=== PATIENT | female | born 1980 | race African-American/Black ===

== ENCOUNTER 2016-07-08 15:53 | Emergency (ER) | payer OTHER ==
[~2016-07-08] VITALS: Ht 170.2 cm; Wt 66.2 kg
[~2016-07-08 15:53] MED LIST: AMOXIL 875 MG875 MG PO; CYMBALTA60 MG PO; MEDROL DOSEPAK1 PAC PO; MOTRIN800 MG PO; MULTIVITAMIN1 TAB PO; NAPROXEN500 MG PO; POLYTRIM O200 GTT/BO OPH
[2016-07-08 17:47] LABS: ABSOLUTE BASOPHIL COUNT 0 /CUMM (0.0-0.2); ABSOLUTE EOSINOPHIL COUNT 0.1 /CUMM (0.0-0.7); ABSOLUTE GRANULOCYTE CT 2.1 /CUMM (1.4-6.5); ABSOLUTE LYMPH COUNT 1.4 /CUMM (1.2-3.4); ABSOLUTE MONOCYTE COUNT 0.4 /CUMM (0.10-0.60); BASOPHIL % 0.8 % (0.0-2.0); EOSINOPHIL % 1.6 % (0-5); GRANULOCYTE % 52.1 % (42.2-75.2); HEMATOCRIT 43.5 % (37-47); MEAN CORPUSCULAR HGB 30.3 PG (27.0-31.0); MEAN CORPUSCULAR HGB CONC 33.9 G/DL (33.0-37.0); MEAN CORPUSCULAR VOLUME 89.3 FL (81.0-99.0); RBC DISTRIBUTION WIDTH 14.2 % (11.5-14.5); RED BLOOD CELL CT 4.87 /CUMM (4.20-5.40)
[2016-07-08] MEDS ORDERED: NASONEX17 GM NASB (19:13)
[2016-07-08] MEDS ORDERED: AMOXICILLIN500 M3 PO (19:13)
[2016-07-08] MEDS ORDERED: ZOFRAN ODT4 M1 SL (19:13)
[2016-07-08] MEDS ORDERED: IBUPROFEN800 M1 PO (19:13)
--- NOTE | 2016-07-08 19:13 | ED INFLUENZA/URI COMPLAINT ---
History of Present Illness General Chief Complaint: General Adult Stated Complaint: "PAIN ALL OVER" COUGH,VOMITING Source: patient Exam Limitations: no limitations Vital Signs & Intake/Output Vital Signs & Intake/Output Vital Signs Date Time Temp Pulse Resp B/P Pulse O2 O2 Flow FiO2 Ox Delivery Rate 07/08 1936 101.4 71 15 117/70 97 Room Air 07/08 1855 Room Air 07/08 1659 98.7 82 18 145/83 97 Room Air ED Intake and Output 07/09 0000 07/08 1200 Intake Total Output Total Balance Patient 146 lb Weight Allergies Coded Allergies: NO KNOWN ALLERGIES (04/23/11) Triage Note: PT STATES HER WHOLE BODY HURTS. PT STATES SHE IS FREEZING AND COUGHING AND HAS A SUNUS LOMELI. PT STATES THIS IS GOING ON FOR 3 DAYS WITH TODAY AND YESTERDAY BEING BAD. Triage Nurses Notes Reviewed? yes Onset: Abrupt Duration: day(s): (2), constant, continues in ED Timing: recent history Severity: moderate, severe No Modifying Factors: none : No Patient currently breastfeeds: No HPI: 36-year-old female comes into emergency room with complaints of generalized body pain, fever chills bodyaches and nonproductive cough. Symptoms have been going on for the past 2 days. Patient's children were sick with similar symptoms. Some associated nausea and vomiting. Denies any diarrhea. No abdominal pain. Nothing seems to make the symptoms better. Denies any other associated symptoms. Patient also reports some pain and pressure under her right eye. (SHIELA NORTH) Past History Travel History Traveled to [place] past 21 day No Medical History Any Pertinent Medical History? 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 No (SHIELA NORTH) Review of Systems Review of Systems Constitutional: Reports: see HPI. EENTM: Reports: no symptoms. Respiratory: Reports: see HPI. Cardiovascular: Reports: no symptoms. GI: Reports: no symptoms. Genitourinary: Reports: no symptoms. Musculoskeletal: Reports: see HPI. Skin: Reports: no symptoms. Neurological/Psychological: Reports: no symptoms. Hematologic/Endocrine: Reports: no symptoms. Immunologic/Allergic: Reports: no symptoms. All Other Systems: Reviewed and Negative (SHIELA NORTH) Physical Exam Physical Exam General Appearance: well developed/nourished, alert, awake Head: atraumatic, normal appearance Eyes: Bilateral: normal appearance. Ears, Nose, Throat: normal ENT inspection, moist mucous membrane Neck: normal inspection Respiratory: normal breath sounds, no respiratory distress Cardiovascular: regular rate/rhythm Gastrointestinal: soft Back: normal inspection Extremities: normal inspection, normal range of motion Neurologic/Psych: awake, alert, oriented x 3, normal gait, normal mood/affect Skin: intact, normal color Core Measures Severe Sepsis Present: No Septic Shock Present: No (SHIELA NORTH) Progress Differential Diagnosis: influenza, meningitis, neutropenia, otitis, pneumonia, pharyngitis, sinusitis Plan of Care: Orders Procedure Date/time Status Add-on Test (ER Only) 07/08 190 Active HUMAN BETA HCG SCREEN 07/08 170 Complete RAPID VIRAL INFLUENZA A 07/08 170 Complete COMPREHENSIVE METABOLIC PANEL 07/08 170 Complete CBC WITHOUT DIFFERENTIAL 07/08 1699 Complete Laboratory Tests 07/08/16 1709: Anion Gap 11, Estimated GFR > 60, BUN/Creatinine Ratio 7.5, Glucose 92, Calcium 9.0, Total Bilirubin 0.3, AST 18, ALT 18, Alkaline Phosphatase 59, Total Protein 8.0, Albumin 4.5, Globulin 3.5, Albumin/Globulin Ratio 1.3, Total Beta HCG NEGATIVE, CBC w Diff NO MAN DIFF REQ, RBC 4.87, MCV 89.3, MCH 30.3, RDW 14.2, Gran % 52.1, Lymphocytes % 34.8, Monocytes % 10.7 H, Eosinophils % 1.6, Basophils % 0.8, Absolute Granulocytes 2.1, Absolute Lymphocytes 1.4, Absolute Monocytes 0.4, Absolute Eosinophils 0.1, Absolute Basophils 0, PUBS MCHC 33.9 Initial ED EKG: none (SHIELA NORTH) Departure Departure Disposition: HOME OR SELF CARE Condition: Stable Clinical Impression Primary Impression: Viral syndrome Referrals: KINGSTON WEBER MD (PCP/Family) Additional Instructions: Take amoxicillin, Nasonex, Motrin, and Zofran ODT as prescribed. Drink plenty of fluids. Rest. Return if any other concerns. Please go over all results of today's visit with your primary care doctor. Contact your primary care doctor to let them know you were here in the emergency room. There may be nonspecific findings which may not be related to your visit today here in the emergency room but may require further evaluation and chronic monitoring by your primary care doctor. If you had a laceration today the chance of foreign body always remains. You should follow-up with your primary care doctor for recheck in 3-5 days for a wound check. If you had an x-ray done there is a chance that a fracture could have been missed on initial read and you should follow-up with your primary care doctor for repeat x-rays if symptoms persist. If your blood pressure was elevated here in the emergency room please have rechecked by her primary care doctor within the next 48 hours by your primary care doctor. If you were prescribed a narcotic here in the emergency room or any type of controlled substances you're not allowed to drive while taking this medication or operate any type of heavy machinery. Narcotics can make you feel lightheaded dizziness nausea and can cause constipation. You may need to cotton picker operator a stool softener. Thank you for choosing [facility] emergency room. Please return to the emergency room immediately if you have any other concerns worsening of symptoms. Departure Forms: Customer Survey General Discharge Information Comments 07/08/2016 7:23:21 PM Symptoms are most consistent with viral illness. In regards to the patient's sinus pressure and pain patient covered with amoxicllin with amoxicillin for atypical sinusitis. Symptoms are likely more consistent with influenza despite negative flu swab or other viral illness. Supportive care. Hemodynamically stable. Patient was offered IV medications but declined. This point time I do not feel patient requires any further evaluation with chest x-ray.. Low suspicion for pneumonia at this time. Patient understands and agrees with plan of care. Follow-up with primary care doctor. (SHIELA NORTH) PA/COLD PRESS LOADER Co-Sign Statement Statement: ED Attending supervision documentation- [] I saw and evaluated the patient. I have also reviewed all the pertinent lab results and diagnostic results. I agree with the findings and the plan of care as documented in the PA's/COLD PRESS LOADER's documentation. [X] I have reviewed the ED Record and agree with the PA's/COLD PRESS LOADER's documentation. [] Additions or exceptions (if any) to the PAs/COLD PRESS LOADER's note and plan are summarized below: [] (STEPHAN HESTER,ARYA)
[2016-07-08 19:36] VITALS: BP 117/70
== END 2016-07-08 19:50 ==
LOC: ERH 15:53
PROVIDERS: Emergency Medicine
DX: B34.9 Viral infection, unspecified (principal)
CPT/HCPCS: 87804; 87804-59; 96372; J1885; J3101